=== PATIENT | female | born 1995 | race Caucasian/White ===

== ENCOUNTER 2018-10-03 08:32 | Outpatient (CLI) | payer OTHER, SELFPAY ==
--- NOTE | 2018-10-03 09:00 | DI.US_ITS ---
SYMPTOM/DIAGNOSIS: EPIGASTRIC PAIN, R10.13 ABDOMINAL ULTRASOUND: Routine examination was performed. The visualized liver parenchyma is normal in appearance. There is no evidence of cholelithiasis. The common bile duct is of normal diameter. The pancreas and spleen appear intact. No renal abnormality is seen. The abdominal aorta is of normal diameter. Normal appearance of IVC. CONCLUSION: Normal abdominal ultrasound.
== END 2018-10-03 08:52 ==
PROVIDERS: PCP Family Medicine; Visit Provider Family Medicine
DX: R10.13 Epigastric pain (principal)
CPT/HCPCS: 76700

== ENCOUNTER 2019-11-06 14:47 | Outpatient (REF) | payer MEDICAID, SELFPAY ==
--- NOTE | 2019-11-06 14:00 | PAPFT_PTH ---
PATIENT: Reema Henley LOC: [facility] U#:[id number] AGE/SX: 24/F ROOM: RE11/06/[address]: Ivana Barrientos : 1995 BED: DIS: 11/06/2019 SPEC #: [id number] RECD: 11/09/19 13:10 STATUS: BRENT REQ #: [id number] ANJELICA: 11/06/19 14:[address]: Ivana Barrientos DEPT: PENDING SALE TO [facility] Cytology RECD BY: Tracy Venegas Tissues: 1 - CX/ENDOCX FOR PAP SMEARS Procedures: PAP THIN PREP/[facility] Screening Comments: [id number] (CHLAMYDIA/GC)
[2019-11-10 15:31] LABS: Chlamydia Result Negative (Negative); GC Result Negative (Negative)
== END 2019-11-06 15:07 ==
LOC: NCHCN 14:47
PROVIDERS: PCP Family Medicine; Visit Provider Family Medicine
DX: Z12.4 Encounter for screening for malignant neoplasm of cervix (principal)
CPT/HCPCS: 87491; 87591; 88142

== ENCOUNTER 2020-10-10 21:29 | Outpatient (REF) | payer MEDICAID, SELFPAY | END 2020-10-10 21:30 | disposition home or self-care (01) | LOC: LBN 21:29 | PROVIDERS: PCP Family Medicine; Visit Provider Family Medicine | DX: R35.0 Frequency of micturition (principal) | CPT/HCPCS: 87077; 87086; 87186 ==

== ENCOUNTER 2020-12-22 15:01 | Outpatient (REF) | payer MEDICAID, SELFPAY ==
[2020-12-22 15:41] LABS: Abs Immature Grans 0.04 10^3/uL (0.0-0.06); Absolute Basophil Count 0.09 10^3/uL (0.0-0.2); Absolute Eosinophil Count 0.23 10^3/uL (0.0-0.7); Absolute Lymphocyte Count 2.42 10^3/uL (1.2-3.4); Absolute Monocyte Count 0.43 10^3/uL (0.1-0.8); Absolute Neutrophil Count 6.42 10^3/uL (1.2-6.7); Basophils % 0.9; Eosinophils % 2.4; HGB 15.3 g/dL (11.2-15.7); Immature Grans % 0.4; Lymphocytes % 25.1; MCHC 31.9 % (32.0-36.0); MCV 87.8 fL (80-95); Monocytes % 4.5; Neutrophils % 66.7; Nucleated RBC 0 %; Platelet Count 362 10^3/uL (130-400); RBC 5.47 10^6/uL (3.93-5.22); RDW 13.2 % (11.7-14.6); RDW-SD 42.8 fL; WBC 9.63 10^3/uL (4.4-10.8)
[2020-12-23 02:06] LABS: Vitamin D 25 Total 22.8 ng/mL (30-100)
[2020-12-23 08:46] LABS: BUN 10 mg/dL (7-18); Calcium 9.4 mg/dL (8.5-10.1); Glucose 93 mg/dL (74-106)
[2020-12-23 08:47] LABS: ALT 31 U/L (14-59); AST 15 U/L (15-37); Albumin 3.9 g/dL (3.4-5.0); Alkaline Phosphatase 84 U/L (46-116); Anion Gap 11.5 mmol/L (3-11); Bilirubin, Total 0.4 mg/dL (0.2-1.0); CO2 28.5 mmol/L (21.0-32.0); CREATININE 0.8 mg/dL (0.55-1.02); Calculated LDL 103 mg/dL (<100); Chloride 103 mmol/L (98-107); Cholesterol 193 mg/dL (<200); HDL Cholesterol 44 mg/dL (40-60); Potassium 3.8 mmol/L (3.5-5.1); Sodium 143 mmol/L (136-145); TSH (W/Ref FT4) 1.56 uIU/mL (0.36-3.74); Total Protein 7.6 g/dL (6.4-8.2); Triglyceride 230 mg/dL (<150)
== END 2020-12-22 15:02 | disposition home or self-care (01) ==
LOC: NCHCN 15:01
PROVIDERS: PCP Family Medicine; Visit Provider Family Medicine
DX: E66.9 Obesity, unspecified (principal)
CPT/HCPCS: 80053; 80061; 82306; 84443; 85025

== ENCOUNTER 2022-10-22 12:35 | Outpatient (REF) | payer OTHER, SELFPAY ==
[2022-10-22 15:22] LABS: ALT 73 U/L (14-59); AST 32 U/L (15-37); Albumin 3.5 g/dL (3.4-5.0); Alkaline Phosphatase 86 U/L (46-116); Anion Gap 7.2 mmol/L (3-11); BUN 11 mg/dL (7-18); Bilirubin, Total 0.4 mg/dL (0.2-1.0); CO2 28.8 mmol/L (21.0-32.0); CREATININE 0.8 mg/dL (0.55-1.02); Calcium 9.2 mg/dL (8.5-10.1); Calculated LDL 96 mg/dL (<100); Chloride 105 mmol/L (98-107); Cholesterol 166 mg/dL (<200); Estimated GFR 102.86 (mL/min/1.73m2); Glucose 104 mg/dL (74-106); HDL Cholesterol 42 mg/dL (40-60); Potassium 4.9 mmol/L (3.5-5.1); Sodium 141 mmol/L (136-145); Total Protein 7.2 g/dL (6.4-8.2); Triglyceride 141 mg/dL (<150)
[2022-10-22 16:17] LABS: Vitamin D 25 Total 43.6 ng/mL (30-100)
== END 2022-10-22 12:36 | disposition home or self-care (01) ==
LOC: NCHCN 12:35
PROVIDERS: PCP Family Medicine; Visit Provider Family Medicine
DX: Z00.00 Encounter for general adult medical examination without abnormal findings (principal); E55.9 Vitamin D deficiency, unspecified; I10 Essential (primary) hypertension; E66.9 Obesity, unspecified
CPT/HCPCS: 80053; 80061; 82306

== ENCOUNTER 2022-10-31 11:51 | Outpatient (REF) | payer OTHER, SELFPAY ==
--- NOTE | 2022-10-31 13:45 | PAPFT_PTH ---
PATIENT: Reema Henley LOC: REPLACED BY [facility] U#:[id number] AGE/SX: 27/F ROOM: RE10/31/[address]: Ivana Barrientos : 1995 BED: DIS: 10/31/2022 SPEC #: [id number] RECD: 11/01/22 12:52 STATUS: BRENT REQ #: [id number] ANJELICA: 10/31/22 13:[address]: Ivana Barrientos DEPT: [facility] Cytology RECD BY: Tracy Venegas Tissues: 1 - CX/ENDOCX FOR PAP SMEARS Procedures: PAP THIN PREP/[facility] Screening Comments: [id number]
== END 2022-10-31 11:52 | disposition home or self-care (01) ==
LOC: NCHCN 11:51
PROVIDERS: PCP Family Medicine; Visit Provider Family Medicine
DX: Z12.4 Encounter for screening for malignant neoplasm of cervix (principal)
CPT/HCPCS: 88142

== ENCOUNTER 2024-11-03 10:22 | Outpatient (REF) | payer MEDICAID, SELFPAY ==
[2024-11-03 14:52] LABS: HCT 43.5 % (36.0-46.0); HGB 14.0 g/dL (11.2-15.7); MCH 27.3 pg (27.0-33.0); MCHC 32.2 % (32.0-36.0); MCV 85 fL (80-95); MPV 10.7 fL (8.0-11.0); Platelet Count 388 10^3/uL (130-400); RBC 5.12 10^6/uL (3.93-5.22); RDW 13.3 % (11.7-14.6); RDW-SD 41.4 fL; WBC 10.67 10^3/uL (4.4-10.8)
[2024-11-03 17:54] LABS: ALT 53 U/L (14-59); AST 17 U/L (15-37); Albumin 3.8 g/dL (3.4-5.0); Alkaline Phosphatase 81 U/L (46-116); Anion Gap 9.1 mmol/L (3-11); BUN 12 mg/dL (7-18); Bilirubin, Total 0.7 mg/dL (0.2-1.0); CO2 30.9 mmol/L (21.0-32.0); Calcium 9.8 mg/dL (8.5-10.1); Calculated LDL 112 mg/dL (<100); Chloride 101 mmol/L (98-107); Cholesterol 182 mg/dL (<200); Estimated GFR 101.59 (mL/min/1.73m2); Glucose 105 mg/dL (74-106); HDL Cholesterol 40 mg/dL (>or=50); Potassium 4.6 mmol/L (3.5-5.1); Sodium 141 mmol/L (136-145); Total Protein 7.5 g/dL (6.4-8.2); Triglyceride 154 mg/dL (<150); Vitamin D 25 Total 41 ng/mL (30-100)
== END 2024-11-03 10:23 | disposition home or self-care (01) ==
LOC: NCHCN 10:22
PROVIDERS: PCP Family Medicine; Visit Provider Family Medicine
DX: I10 Essential (primary) hypertension (principal); E55.9 Vitamin D deficiency, unspecified; E66.9 Obesity, unspecified
CPT/HCPCS: 80053; 80061; 82306; 85027